=== PATIENT | male | born 1990 | race Caucasian/White ===

== ENCOUNTER 2023-10-19 18:49 | Emergency (ER) | payer OTHER, SELFPAY ==
[2023-10-19 18:49] VITALS: BMI 17.4
[2023-10-19 18:50] VITALS: BP 128/88
[2023-10-19 19:30] LABS: % Basophils 0.8 % (0-2); % Immature Granulocytes 0.3 % (0-0.5); % Monocytes 5.6 % (1.7-9.3); % Neutrophils 58.3 % (42.2-75.2); Absolute Basophils 0.1 10^3/uL (0-0.2); Absolute Eosinophils 0.2 10^3/uL (0-0.7); Absolute Lymphocytes 2.5 10^3/uL (1.2-3.4); Absolute Monocytes 0.4 10^3/uL (0.1-0.6); Absolute Neutrophils 4.6 10^3/uL (1.4-6.5); Hematocrit 42.1 % (39.0-52.0); Hemoglobin 14.6 g/dL (13.0-18.0); Mean Corp Hgb Conc. 34.7 g/dL (33.0-37.0); Mean Corpuscular Hgb 28.2 pg (27.0-31.0); Mean Corpuscular Volume 81.3 fL (80.0-94.0); Mean Platelet Volume 9.3 fL (7.4-10.4); Nucleated Red Blood Cells % 0 % (-); Platelet Count 232 10^3/uL (130-400); Red Blood Cell Count 5.18 10^6/uL (4.70-6.10); Red Cell Dist. Width 13.1 % (11.5-14.5); White Blood Cell Count 7.9 10^3/uL (4.8-10.8)
[2023-10-19 19:49] LABS: ALT (SGPT) 12 U/L (0-50); AST (SGOT) 25 U/L (17-59); Albumin 4.6 g/dl (3.5-5.0); Alkaline Phosphatase 70 U/L (38-126); Blood Urea Nitrogen 20 mg/dl (9-20); Carbon Dioxide 28 mmol/L (22-30); Chloride 104 mmol/L (98-107); Estimated Creatinine Clearance 65 ml/min; Glucose 93 mg/dl (70-99); Potassium 4.4 mmol/L (3.5-5.1); Sodium 138 mmol/L (135-145); Total Bilirubin 0.7 mg/dl (0.2-1.3); Total Protein 6.6 g/dl (6.3-8.2); eGFR > 60.00
[2023-10-19 19:50] LABS: Lipase 69 U/L (23-300)
[2023-10-19 19:52] VITALS: BP 116/82
[2023-10-19 20:00] VITALS: BP 130/91
--- NOTE | 2023-10-19 20:20 | ED.GENMED ---
History of Present Illness
General
Chief Complaint: Flank Pain
Source: patient
Exam Limitations: none
Time Seen by Provider: 10/19/23 19:39
Travel History
Have you had any contact with someone who has COVID-19?: No
Do you have any symptoms of coronavirus? Fever > 100 degrees, chills, cough, shortness of breath, sore throat, loss of taste or smell, muscle aches, or headache?: No
History of Present Illness
History of Present Illness:
This is a 33 year old male that comes in with c/o left flank pain. States that he started on Monday night with slight pain and then it stopped. States that today the pain back on the left flank. States that he did make an appointment with the
Urologist for tomorrow. States that the pain is dull. States that he has some discomfort with breathing. Denies any fever, chills, chest pain, nausea, vomiting, diarrhea, headache, dizziness, urinary burning.
Past History
Past History
ED Past Medical History: Other (Kidney stones, seasonal allergy)
ED Past Surgical History: Tonsilectomy (And adenoids, ), Urological (left kidney stone removed left ureteral stent, ) and Other (Oral surgery, bilateral eye surgery, )
Patient has exhibited threatening behavior?: No
PSI?: No
Social History
Tobacco: Smoker
Alcohol: None
Drug: Marijuana
Personal: Single
Living: with family
Employment: Employed
Family History
Family History: Other (kidney stones in dad)
Review of Systems
Review of Systems
All Other Systems: ROS reviewed and negative except as documented in HPI and ROS
Constitutional: Reports no symptoms; Denies fever or chills
EENT: Reports no symptoms
Respiratory: Reports trouble breathing (with pain); Denies cough
Cardiac: Reports no symptoms; Denies chest pain
ABD/GI: Denies abdominal pain, nausea, vomiting or diarrhea
: Reports flank pain (Left sided); Denies dysuria or frequency
Musculoskeletal: Reports no symptoms
Skin: Reports no symptoms
Neurological: Reports no symptoms; Denies dizzy or headache
Psychiatric: Reports no symptoms
Phy Exam
General Physical Exam
General Presentation: no apparent distress
General age: appears stated age
General Skin: warm and dry
General Habitus: normal
General Mental: alert
General Hydration: appears well hydrated
ENT Exam
ENT Exam: TM's normal, pharynx normal and neck supple
Eye Exam
Eye Exam: EOMI
Cardiovascular Exam
Cardiovascular Exam: regular rate/rhythm, no edema, no murmur and normal peripheral pulses
Pulmonary Exam
Pulmonary Exam: lungs clear, no respiratory distress, no rales, chest non tender, no crackles, no rhonchi, no wheezing and no cough
Gastrointestinal Exam
Gastrointestinal Exam: normal bowel sounds, non tender, soft, no organomegaly, no pulsatile mass, non distended and cva tenderness
Musculoskeletal Exam
Musculoskeletal Exam: full ROM and no edema
Skin Exam
Skin Exam: normal color, warm/dry, no rash and no petechia
Psychiatric Exam
Psychiatric Exam: normal mood/affect
Course
Orders/Labs/Results
Orders:
Orders
10/19/23 19:21
CBC/With Diff [Complete Blood Count/With Diff] Urgent
CMP [Comprehensive Metabolic Panel] Urgent
Lipase Urgent
10/19/23 20:18
CT Abd/pel Without Iv Or Oral Urgent
Comment:
Reason For Exam: left flank pain
0.9% Sodium Chloride 1000 ml [Nss] 1,000 ml IV BOLUS
Ketorolac [Toradol] 30 mg IV NOW STA
10/19/23 22:55
Urinalysis Reflex To Culture Urgent
Date Specimen was Collected: 10/19/23
Time Specimen was Collected: 22:53
Urine Microscopic Reflex Cult Urgent
Urine Culture Urgent
SOPHIA Source: U
Specimen Description:
Date Specimen was Collected: 10/19/23
Time Specimen was Collected: 22:53
10/19/23 22:58
Ondansetron Injectable [Zofran] 4 mg IV NOW STA
10/19/23 23:03
Ondansetron Orally Disint [Zofran Odt (Orally Disintegrating)] 4 mg PO NOW STA
Tamsulosin [Flomax] 0.4 mg PO NOW STA
Abnormal Lab Results
10/19/23
22:55
Urine Ketones Trace A
(Negative)
Ur Occult Blood Reflex 4+ A
(Negative)
Leukocyte Esterase Rfl Trace A
(Negative)
Urine RBC >100 A /HPF
(0-2)
Urine Bacteria (Reflex) Moderate A
(Negative)
10/19/23 19:21
10/19/23 19:21
Normal labs, Lipase normal at 69, Urine negative for infection positive for blood
Vital Signs
Initial and Last Documented VS:
Initial Vital Signs
Temp Pulse Resp BP Pulse Ox
99.1 F 87 18 128/88 98
10/19/23 18:50 10/19/23 18:50 10/19/23 18:50 10/19/23 18:50 10/19/23 18:50
Last Documented Vital Signs
Temp Pulse Resp BP Pulse Ox
99.1 F 87 18 127/68 100
10/19/23 18:50 10/19/23 18:50 10/19/23 18:50 10/19/23 22:00 10/19/23 22:30
MDM/Problems Addressed
Differential Diagnosis Includes:
Renal calculus
MDM/Problems Addressed:
This is a 33 year old male that comes in with c/o left flank pain. States that this started on Monday night and then it went away. States that the pain come back today.
will get labs, CT scan. IV fluids and pain medication
Back into see patient and family. Explained that he has a 5mm stone in the proximal ureter. Mom states that because he has such narrow ureters he doesn't pass the stones. Message sent to Dr. Madden. Await his response.
Dr. Madden feels that the patient can go home and follow up with Dr. Guevara tomorrow. Will discharge home. Will give patient Three prescriptions. The first is Zofran to help with any nausea/vomiting, The second is Flomax to help relax the smooth
muscle and the last is Toradol to help with pain. Patient can also use Tylenol as needed for pain. Patient to return with any concerns.
Chronic conditions affecting care: Other (history of renal calcululs)
Acute Exacerbation and/or Progression of Chronic Illness:
renal calculus
*Radiology
Radiology exam reviewed: radiology read reviewed (CT-)bstrutive uropathy secondary to a 5mm calculus in the proximal left ureter causing moderate left hydronephrosis. )
*Pulse Oximetry
Patient hypoxic: no
*EKG
Interpreted by ED Provider?: NA
Rate: EKG- N/A
*Berry Picker Machine Operator Interpretation
Rate: Berry Picker Machine Operator- N/A
*Critical Care Note
Total Time (30-74mins, 75-104mins- exclusive of procedures): Not Applicable
ED Attending Note
-
Portions of this chart may have been created with voice recognition software.� Occasional wrong word or��sound alike� substitutions may have occurred due to the inherent limitations of voice recognition software.
Discharge Plan
Departure
Patient Disposition: Home (Routine Discharge)
Date of Disposition: 10/19/23
Time of Disposition: 23:10
Patient with high blood pressure during this ER visit?: No
Condition: Good
Covid-19: Not Applicable
Discharge Problem:
Renal calculus, left
Instructions: Renal Colic (DC), How to Strain Your Urine
Prescriptions:
New
ondansetron 4 mg tablet,disintegrating
4 mg PO Q8H PRN (Reason: nausea and vomiting) Qty: 10 0RF
tamsulosin [Flomax] 0.4 mg capsule
0.4 mg PO HS Qty: 7 0RF
ketorolac 10 mg tablet
10 mg PO Q8H PRN (Reason: Pain) Qty: 15 0RF
Rx Instructions:
maximum total duration of 5 days from all oral, intranasal, or parenteral formulations
No Action
multivitamin Tablet
1 tab PO DAILY
oxycodone-acetaminophen [Percocet] 5-325 mg Tablet
1 tab PO Q4HPRN PRN (Reason: pain) Qty: 10 0RF
ondansetron 4 mg tablet,disintegrating
4 mg PO QID PRN (Reason: nausea and vomiting) Qty: 20 0RF
fluticasone propionate 50 mcg/actuation spray,suspension
2 spray intranasal DAILY Qty: 16 0RF
Rx Instructions:
2 sprays each nostril once daily
ibuprofen 200 mg Tablet
400 mg PO Q6HPRN PRN (Reason: mild pain)
Medical [place]
2 - 3 puff inhalation Q4HPRN PRN (Reason: anxiety)
Referrals:
Bulmaro Lane MD [Family Provider] -
Romel Guevara MD [Active] - 10/20/23
Activity Restrictions/Additional Instructions:
As discussed, your blood work is normal. Your CT shows that you have a 5 mm stone in the proximal ureter. Please follow up with Dr. Guevara tomorrow as scheduled. Please increase your water intake to 8-8oz glasses daily. You have had three
prescriptions sent to your Pharmacy. The first is Zofran to help with any nausea/vomiting. The second is Flomax that you will take at bedtime daily. The third is for Toradol that will help with pain. PLEASE DO NOT TAKE AN OTHER ALEVE, ADVIL OR
IBUPROFEN. Follow up with Dr. Guevara tomorrow. IF YOU HAVE INCREASED OR CHANGING PAIN, FEVER, OR YOU HAVE ANY OTHER CONCERNS PLEASE RETURN TO THE EMERGENCY ROOM.
Interventions
Interventions:
*Risk Screen - Suicide Last Done: 10/19/23 20:36
*General Assessment Last Done: 10/19/23 19:46
*Neglect/Abuse Screening Last Done: 10/19/23 20:36
ED- Fall Risk Assessment Last Done: 10/19/23 20:36
*ED COVID-19 Vaccine History Last Done: 10/19/23 19:46
NF-Hrkoqv-Ujsdjopgfe Assessment Last Done: 10/19/23 20:36
ED-Male Genitourinary Assessment Last Done: 10/19/23 20:36
Discharge Date and Time
Print Language: SWEDISH
[2023-10-19] MEDS: TORADOL 30 MG IV (20:31)
[2023-10-19] MEDS: NSS 1000 IV (20:31)
[2023-10-19 21:00] VITALS: BP 119/72
[2023-10-19 22:00] VITALS: BP 127/68
[2023-10-19 23:02] LABS: Urine Albumin Trace (Neg - Trace); Urine Bilirubin Negative (Negative); Urine Character Slightly Cloudy (Clear); Urine Color Yellow; Urine Glucose Negative (Negative); Urine Ketone Trace (Negative); Urine Leukocyte Trace (Negative); Urine Nitrite Negative (Negative); Urine Occult Blood 4+ (Negative); Urine Specific Gravity 1.025 (<1.030); Urine Urobilinogen Negative (Neg - 1+)
[2023-10-19 23:09] LABS: Urine Bacteria Moderate (Negative); Urine Red Blood Cell >100 /HPF (0-2); Urine White Cell 0-2 /HPF (0-5)
[2023-10-19] MEDS: ZOFRAN ODT (ORALLY DISINTEGRATING) 4 MG PO (23:10)
[2023-10-19] MEDS: FLOMAX 0.400000000000000022 MG PO (23:10)
[2023-10-19] MEDS: ZOFRAN 4 MG IV (23:10)
[2023-10-19 23:15] VITALS: BP 120/82
== END 2023-10-19 23:21 | disposition home or self-care (01) ==
LOC: EMR 18:49
PROVIDERS: Clinical Nurse Specialist Family Health; EMERGENCY PHYSICIAN Emergency Medicine; FAMILY PHYSICIAN Family Medicine
DX: N13.2 Hydronephrosis with renal and ureteral calculous obstruction (principal); F17.200 Nicotine dependence, unspecified, uncomplicated; Z87.442 Personal history of urinary calculi
CPT/HCPCS: 99284; 96374; 96375; 96361; 74176; 80053; 81003; 81015; 83690; 85025; 87086

== ENCOUNTER → 2023-10-26 08:45 | Outpatient (REF) | payer OTHER, SELFPAY | LOC: CLAB 08:45 | PROVIDERS: ATTENDING PHYSICIAN Surgery | DX: N13.2 Hydronephrosis with renal and ureteral calculous obstruction (principal) | CPT/HCPCS: 88300 ==

== ENCOUNTER 2023-10-28 02:11 | Emergency (ER) | payer OTHER, SELFPAY ==
[2023-10-28 02:13] VITALS: BP 144/82
[2023-10-28 02:32] VITALS: BMI 18.7
--- NOTE | 2023-10-28 02:36 | ED.GENMED ---
History of Present Illness
General
Chief Complaint: Flank Pain
Source: patient and family (father)
Time Seen by Provider: 10/28/23 02:21
History of Present Illness
History of Present Illness:
33-year-old male presents to the emergency room complaining of right flank pain and difficulty urinating. Patient was diagnosed with a kidney stone about a week ago. He had a stent placed yesterday by Dr. Guevara at an outpatient surgical center.
Today the patient is experiencing the sensation he has to urinate but is not passing any urine. He also feels nauseous. He has significant flank pain rating to his testicle. No fever or chills. Patient took tamsulosin and Pyridium without
improvement.
Past History
Past History
ED Past Medical History: Other (Kidney stones, seasonal allergy)
ED Past Surgical History: Tonsilectomy (And adenoids, ), Urological (left kidney stone removed left ureteral stent, ) and Other (Oral surgery, bilateral eye surgery, )
Patient has exhibited threatening behavior?: No
PSI?: No
Social History
Tobacco: Smoker
Alcohol: None
Drug: Marijuana
Personal: Single
Living: with family
Employment: Employed
Family History
Family History: Other (kidney stones in dad)
Phy Exam
Physical Exam
Physical Exam:
General: Awake, Alert, Oriented X3. Appears uncomfortable, very thin and older than stated age
Vitals: unremarkable
Head: Atraumatic
Eyes: Pupils equal, EOMI
Throat: Airway intact, no exudates
Neck: Trachea midline
Lungs: Clear and equal b/l
Heart: Regular rate, no murmurs
Abd: Soft, Nontender, No pulsatile mass
Back: Left CVA tenderness to percussion
Neuro: Nonfocal
Skin: Warm, dry, no rash
Extremities: pulses equal b/l, no edema
Course
Orders/Labs/Results
Orders:
Orders
10/28/23 02:35
Bladder Scan- Treatment ONCE
0.9% Sodium Chloride 1000 ml [Nss] 1,000 ml IV BOLUS
HYDROmorphone [Dilaudid] 0.5 mg IV NOW STA
Ketorolac [Toradol] 15 mg IV NOW STA
Ondansetron Injectable [Zofran] 4 mg IV NOW STA
10/28/23 02:36
Abdomen Xray - 1 View [CR Abdomen - 1 View] Urgent
Comment:
Reason For Exam: eval stent placement
10/28/23 02:42
Basic Metabolic Panel Urgent
Complete Blood Count/With Diff Urgent
10/28/23 04:11
Urinalysis Reflex To Culture Urgent
Date Specimen was Collected: 10/28/23
Time Specimen was Collected: 04:10
Urine Microscopic Reflex Cult Urgent
Urine Culture Urgent
SOPHIA Source: U
Specimen Description:
Date Specimen was Collected: 10/28/23
Time Specimen was Collected: 04:10
Abnormal Lab Results
10/28/23 10/28/23
02:42 04:11
Absolute Lymphs (auto) 4.3 H 10^3/uL
(1.2-3.4)
Urine Ketones Trace A
(Negative)
Ur Occult Blood Reflex 4+ A
(Negative)
Urine Nitrite (Reflex) Positive A
(Negative)
Urine Bilirubin 1+ A
(Negative)
Leukocyte Esterase Rfl 2+ A
(Negative)
Urine RBC >100 A /HPF
(0-2)
Urine WBC (Reflex) >100 A /HPF
(0-5)
Urine Bacteria (Reflex) Many A
(Negative)
Urine Albumin (Reflex) 3+ A
(Neg - Trace)
10/28/23 02:42
10/28/23 02:42
Vital Signs
Initial and Last Documented VS:
Initial Vital Signs
Temp Pulse Resp BP Pulse Ox
98 F 81 22 144/82 100
10/28/23 02:13 10/28/23 02:13 10/28/23 02:13 10/28/23 02:13 10/28/23 02:13
Last Documented Vital Signs
Temp Pulse Resp BP Pulse Ox
98 F 68 18 94/59 96
10/28/23 02:13 10/28/23 05:13 10/28/23 05:13 10/28/23 05:13 10/28/23 05:13
MDM/Problems Addressed
Differential Diagnosis Includes:
Bladder spasm, stent pain, dehydration, urinary retention
MDM/Problems Addressed:
Flatplate of the x-ray shows good stent placement. Patient feels much better after analgesia and IV fluids. Labs are reassuring. Urinalysis shows red blood cells and white blood cells but this is not unexpected given the normal inflammatory
response to having a stent.
*Radiology
Radiology exam reviewed: preliminary read by ED provider (My review of the abdominal film shows stent in adequate position)
*Pulse Oximetry
Patient hypoxic: no
*Critical Care Note
Total Time (30-74mins, 75-104mins- exclusive of procedures): Not Applicable
ED Attending Note
-
Portions of this chart may have been created with voice recognition software.� Occasional wrong word or��sound alike� substitutions may have occurred due to the inherent limitations of voice recognition software.
Discharge Plan
Departure
Patient Disposition: Home (Routine Discharge)
Date of Disposition: 10/28/23
Time of Disposition: 05:25
Patient with high blood pressure during this ER visit?: No
Condition: Good
Discharge Problem:
Renal colic
Instructions: Renal Colic (DC)
Prescriptions:
No Action
No Current Medications
0
Referrals:
Bulmaro Lane MD [Family Provider] -
Interventions
Interventions:
*Risk Screen - Suicide Last Done: 10/28/23 02:13
*General Assessment Last Done: 10/28/23 02:13
*Neglect/Abuse Screening Last Done: 10/28/23 02:13
ED- Fall Risk Assessment Last Done: 10/28/23 02:35
II-Dwwzlh-Iajcrdbytq Assessment Last Done: 10/28/23 02:50
ED-Male Genitourinary Assessment Last Done: 10/28/23 02:50
Discharge Date and Time
Print Language: MEXICAN
[2023-10-28] MEDS: NSS 1000 IV (02:48)
[2023-10-28] MEDS: ZOFRAN 4 MG IV (02:51)
[2023-10-28] MEDS: TORADOL 15 MG IV (02:51)
[2023-10-28] MEDS: DILAUDID 0.5 MG IV (02:52)
[2023-10-28 02:53] LABS: % Basophils 0.6 % (0-2); % Eosinophils 2.7 % (0-6); % Immature Granulocytes 0.2 % (0-0.5); % Lymphocytes 43.4 % (20.5-51.1); % Monocytes 5.7 % (1.7-9.3); % Neutrophils 47.4 % (42.2-75.2); Absolute Basophils 0.1 10^3/uL (0-0.2); Absolute Eosinophils 0.3 10^3/uL (0-0.7); Absolute Lymphocytes 4.3 10^3/uL (1.2-3.4); Absolute Monocytes 0.6 10^3/uL (0.1-0.6); Absolute Neutrophils 4.7 10^3/uL (1.4-6.5); Hematocrit 43.3 % (39.0-52.0); Hemoglobin 14.5 g/dL (13.0-18.0); Mean Corp Hgb Conc. 33.5 g/dL (33.0-37.0); Mean Corpuscular Hgb 28.2 pg (27.0-31.0); Mean Corpuscular Volume 84.2 fL (80.0-94.0); Mean Platelet Volume 9.5 fL (7.4-10.4); Nucleated Red Blood Cells % 0 % (-); Platelet Count 228 10^3/uL (130-400); Red Blood Cell Count 5.14 10^6/uL (4.70-6.10); Red Cell Dist. Width 13.1 % (11.5-14.5); White Blood Cell Count 9.9 10^3/uL (4.8-10.8)
[2023-10-28 03:10] LABS: Blood Urea Nitrogen 18 mg/dl (9-20); Calcium 9.6 mg/dl (8.4-10.2); Carbon Dioxide 26 mmol/L (22-30); Chloride 105 mmol/L (98-107); Estimated Creatinine Clearance 86 ml/min; Glucose 91 mg/dl (70-99); Potassium 3.7 mmol/L (3.5-5.1); Sodium 140 mmol/L (135-145); eGFR > 60.00
[2023-10-28 04:25] LABS: Urine Albumin 3+ (Neg - Trace); Urine Bilirubin 1+ (Negative); Urine Character Very Cloudy (Clear); Urine Color Amber; Urine Glucose Negative (Negative); Urine Ketone Trace (Negative); Urine Leukocyte 2+ (Negative); Urine Nitrite Positive (Negative); Urine Occult Blood 4+ (Negative); Urine Specific Gravity 1.025 (<1.030); Urine Urobilinogen 1+ (Neg - 1+)
[2023-10-28 05:05] LABS: Urine Bacteria Many (Negative); Urine Red Blood Cell >100 /HPF (0-2)
[2023-10-28 05:07] LABS: Urine Amorphous Seen; Urine Squamous Cell SEEN /LPF (Few)
[2023-10-28 05:08] LABS: Urine White Cell >100 /HPF (0-5)
[2023-10-28 05:13] VITALS: BP 94/59
[2023-10-28 05:33] VITALS: BP 99/56
== END 2023-10-28 05:35 | disposition home or self-care (01) ==
LOC: EMR 02:11
PROVIDERS: EMERGENCY PHYSICIAN Emergency Medicine; FAMILY PHYSICIAN Family Medicine
DX: N23 Unspecified renal colic (principal); N20.0 Calculus of kidney; R11.0 Nausea; Z87.442 Personal history of urinary calculi; F17.200 Nicotine dependence, unspecified, uncomplicated
CPT/HCPCS: 99284; 96374; 96375 ×2; 96361; 51798; 74018; 80048; 81003; 81015; 85025; 87086

== ENCOUNTER → 2024-06-07 11:04 | Outpatient (REF) | payer OTHER, SELFPAY | LOC: HWRAD 11:04 | PROVIDERS: ATTENDING PHYSICIAN Surgery; FAMILY PHYSICIAN Family Medicine | DX: N20.0 Calculus of kidney (principal) | CPT/HCPCS: 76775 ==

== ENCOUNTER → 2024-11-05 16:14 | Outpatient (REF) | payer OTHER, SELFPAY | LOC: HWRAD 16:14 | PROVIDERS: ATTENDING PHYSICIAN Physician Assistant Medical; FAMILY PHYSICIAN Family Medicine | DX: R07.89 Other chest pain (principal) | CPT/HCPCS: 71111 ==

== ENCOUNTER → 2025-02-07 12:56 | Outpatient (REF) | payer OTHER, SELFPAY | LOC: HWRAD 12:56 | PROVIDERS: ATTENDING PHYSICIAN Physician Assistant | DX: S22.32XD Fracture of one rib, left side, subsequent encounter for fracture with routine healing (principal) | CPT/HCPCS: 71111 ==

== ENCOUNTER → 2025-03-19 07:09 | Outpatient (REF) | payer OTHER, SELFPAY | LOC: HWRAD 07:09 | PROVIDERS: ATTENDING PHYSICIAN Surgery; FAMILY PHYSICIAN Family Medicine | DX: N20.0 Calculus of kidney (principal) | CPT/HCPCS: 76775 ==